=== PATIENT | male | born 1980 ===

== ENCOUNTER 2021-11-20 17:07 | Emergency (ER) | payer SELFPAY ==
[2021-11-20] MEDS ORDERED: LORazepam 1 MG Tab PO ONE (17:53)
[2021-11-20] MEDS ORDERED: ClonazePAM 1 MG Tab PO STA (18:13)
[2021-11-20 20:34] LABS: ACETAMINOPHEN <2.0 ug/mL; BLOOD UREA NITROGEN,BUN 14 mg/dL (7.0-18.0); CARBON DIOXIDE,CO2 28.8 mmol/L (21.0-32.0); CHLORIDE,CL 105 mmol/L (98-107); GLUCOSE RANDOM 107 mg/dL (74-106); SODIUM,NA 144 mmol/L (136-148)
[2021-11-20 20:35] LABS: ESTIMATED GFR 88 mL/min (>60)
[2021-11-20] MEDS ORDERED: LORazepam 2 MG/ML SDV IM ONE (21:05)
== END 2021-11-21 01:23 | disposition home or self-care (01) ==
LOC: MW.ED 17:07
DX: R45.851 Suicidal ideations (principal); F10.929 Alcohol use, unspecified with intoxication, unspecified; Y90.8 Blood alcohol level of 240 mg/100 ml or more
CPT/HCPCS: 36415; 80053; 80143; 80179; 80305; 80307; 81001; 83735; 84443; 85025; 87635; 93005; 96372; 99285; A9270; J2060; 93010; U0002